=== PATIENT | male | born 1995 | race Hispanic/Latino ===

== ENCOUNTER 2016-07-09 07:16 | Emergency (ER) | payer SELFPAY ==
[~2016-07-09] VITALS: Ht 152.4 cm; Wt 65.0 kg
[~2016-07-09 07:16] MED LIST: AMOXICILLIN500 MG OR; AUGMENTIN875TAB OR; BACTRIM DS1 TAB PO; DENIES CURRENT MEDS; DOXYCYCL HYC100 MG PO; LORTAB 1010 MG PO; LORTAB 5 PO; NAPROSYN500 MG OR; NAPROSYN500 MG PO; NO HOME MEDS; ULTRAM50 MG PO; ZITHROMAX250 MG PO
[2016-07-09 07:37] LABS: HEMATOCRIT 48.7 % (39.0-50.0); HEMOGLOBIN 16.4 g/dl (14.0-18.0); IMMATURE GRANULOCYTES 0.3 % (0.0-1.0); MEAN CELL VOLUME 89.2 fL CALC (80.0-100.0); MEAN CORPUSCULAR HGB CONC 33.7 g/L CALC (32.0-36.0); NEUT# 3.01 thou/uL (1.82-7.42); RED BLOOD COUNT 5.46 mill/uL (4.70-6.10); RED CELL DISTRI WIDTH 12.4 % (11.5-15.5)
[2016-07-09 07:45] LABS: ALBUMIN 4.5 g/dL (3.2-5.0); ALKALINE PHOSPHATASE 59 u/l (38-126); AMYLASE 68 u/l (30-110); ANION GAP 16 (6-22 (CALC)); BUN 14 mg/dL (9-20); BUN/CREATININE RATIO 16 (12-20 (CALC)); CALCIUM 9.6 mg/dL (8.4-10.2); CARBON DIOXIDE 26 mmol/l (22-30); CHLORIDE 102 mmol/l (95-108); CREATININE 0.9 mg/dL (0.7-1.3); GFR > 60 ML/MIN (>=60 (CALC)); GFR FOR AFR.AMER. > 60 ML/MIN (>=60 (CALC)); GLUCOSE 158 mg/dL (75-110); LIPASE 60 u/l (23-300); POTASSIUM 4.1 mmol/l (3.5-5.1); SGOT/AST 30 u/l (17-59); SGPT/ALT 43 u/l (21-72); SODIUM 140 mmol/l (137-146)
[2016-07-09] MEDS ORDERED: CIPROFLOXACN500 MG PO (08:44)
[2016-07-09] MEDS ORDERED: LORTAB 5-325 MG1 TAB PO (08:44)
[2016-07-09 08:50] VITALS: BP 119/82
== END 2016-07-09 08:52 | disposition home or self-care (01) | DRG 694 ==
LOC: ED 07:16
PROVIDERS: Emergency Medicine
DX: N13.2 Hydronephrosis with renal and ureteral calculous obstruction (principal); F32.9 Major depressive disorder, single episode, unspecified; F90.9 Attention-deficit hyperactivity disorder, unspecified type; G89.29 Other chronic pain; M54.9 Dorsalgia, unspecified; F17.210 Nicotine dependence, cigarettes, uncomplicated

== ENCOUNTER 2016-07-12 09:27 | Emergency (ER) | payer OTHER ==
[~2016-07-12] VITALS: Ht 152.4 cm; Wt 59.0 kg
[~2016-07-12 09:27] MED LIST changes: +CIPROFLOXACN500 MG PO; +LORTAB 5-325 MG1 TAB PO
[2016-07-12 10:20] LABS: HEMATOCRIT 48.5 % (39.0-50.0); HEMOGLOBIN 16.4 g/dl (14.0-18.0); IMMATURE GRANULOCYTES 0.3 % (0.0-1.0); MEAN CELL VOLUME 89.5 fL CALC (80.0-100.0); MEAN CORPUSCULAR HGB 30.3 pG CALC (26.0-32.0); MEAN CORPUSCULAR HGB CONC 33.8 g/L CALC (32.0-36.0); NEUT# 5.89 thou/uL (1.82-7.42); RED BLOOD COUNT 5.42 mill/uL (4.70-6.10); RED CELL DISTRI WIDTH 12.4 % (11.5-15.5)
[2016-07-12 10:43] LABS: ALBUMIN 4.8 g/dL (3.2-5.0); ALKALINE PHOSPHATASE 60 u/l (38-126); AMYLASE 73 u/l (30-110); ANION GAP 18 (6-22 (CALC)); BILIRUBIN, TOTAL 1.7 mg/dL (0.0-1.4); BUN 17 mg/dL (9-20); BUN/CREATININE RATIO 18 (12-20 (CALC)); CALCIUM 10.1 mg/dL (8.4-10.2); CARBON DIOXIDE 25 mmol/l (22-30); CHLORIDE 101 mmol/l (95-108); GFR > 60 ML/MIN (>=60 (CALC)); GFR FOR AFR.AMER. > 60 ML/MIN (>=60 (CALC)); GLUCOSE 138 mg/dL (75-110); LIPASE 40 u/l (23-300); POTASSIUM 3.9 mmol/l (3.5-5.1); SGOT/AST 36 u/l (17-59); SGPT/ALT 50 u/l (21-72); SODIUM 140 mmol/l (137-146); TOTAL PROTEIN 7.5 g/dL (6.3-8.2)
== END 2016-07-12 11:52 | disposition left against medical advice (07) | DRG 392 ==
LOC: ED 09:27
PROVIDERS: Emergency Medicine
DX: R10.31 Right lower quadrant pain (principal); N13.30 Unspecified hydronephrosis; Z91.19 Patient's noncompliance with other medical treatment and regimen
CPT/HCPCS: Q9967

== ENCOUNTER 2017-03-10 17:25 | Emergency (ER) | payer OTHER ==
[~2017-03-10] VITALS: Ht 152.4 cm; Wt 60.0 kg
[2017-03-10 18:45] LABS: INFLUENZA A NONE DETECTED (NONE DETECT); INFLUENZA B NONE DETECTED (NONE DETECT)
[2017-03-10] MEDS ORDERED: CIPROFLOXACN500 MG PO (18:47)
[2017-03-10] MEDS ORDERED: ZOFRAN ODT4 MG PO (18:47)
[2017-03-10] MEDS ORDERED: LOMOTIL2.5 MG PO (18:47)
[2017-03-10 19:04] VITALS: BP 118/77
== END 2017-03-10 19:04 | disposition home or self-care (01) | DRG 392 ==
LOC: ED 17:25
PROVIDERS: Emergency Medicine
DX: K52.9 Noninfective gastroenteritis and colitis, unspecified (principal); F17.210 Nicotine dependence, cigarettes, uncomplicated; R11.2 Nausea with vomiting, unspecified; R05 Cough; R19.7 Diarrhea, unspecified; R50.9 Fever, unspecified

== ENCOUNTER 2018-04-28 16:11 | Emergency (ER) | payer OTHER ==
[~2018-04-28] VITALS: Ht 152.4 cm; Wt 56.8 kg
[~2018-04-28 16:11] MED LIST changes: +LOMOTIL2.5 MG PO; +ZOFRAN ODT4 MG PO
[2018-04-28 16:54] LABS: HEMATOCRIT 43.3 % (39.0-50.0); HEMOGLOBIN 14.9 g/dl (14.0-18.0); IMMATURE GRANULOCYTES 0.1 % (0.0-5.0); MEAN CELL VOLUME 89.5 fL CALC (80.0-100.0); MEAN CORPUSCULAR HGB 30.8 pG CALC (26.0-32.0); MEAN CORPUSCULAR HGB CONC 34.4 g/L CALC (32.0-36.0); NEUT# 4.67 thou/uL (1.82-7.42); RED BLOOD COUNT 4.84 mill/uL (4.70-6.10); RED CELL DISTRI WIDTH 12.6 % (11.5-15.5)
[2018-04-28 17:50] VITALS: BP 125/81
== END 2018-04-28 17:50 | disposition home or self-care (01) ==
LOC: ED 16:11
PROVIDERS: Family Medicine
DX: B34.9 Viral infection, unspecified (principal); F17.210 Nicotine dependence, cigarettes, uncomplicated; R05 Cough; R50.9 Fever, unspecified; R11.10 Vomiting, unspecified; R07.9 Chest pain, unspecified; R53.1 Weakness

== ENCOUNTER 2019-02-20 10:40 | Emergency (ER) | payer OTHER ==
[~2019-02-20] VITALS: Ht 152.4 cm; Wt 53.9 kg
[2019-02-20] MEDS ORDERED: KEFLEX500 M1 PO (12:43)
[2019-02-20 12:50] VITALS: BP 118/85
== END 2019-02-20 12:50 | disposition home or self-care (01) ==
LOC: ED 10:40
DX: L03.011 Cellulitis of right finger (principal); F17.200 Nicotine dependence, unspecified, uncomplicated